=== PATIENT | male | born 1965 | race Hispanic/Latino ===

== ENCOUNTER 2018-02-17 10:22 | Observation (INO) | payer MEDICAID, OTHER ==
[2018-02-17] MEDS ORDERED: Propofol 10 mg/ml Inj (20 ML) ONE (11:16)
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
[2018-02-17 12:14] LABS: BASO % 0.7 % (0.0-2.0); EOS # 0.3 K/uL (0.0-0.7); EOS % 5.5 % (0.0-4.0); HEMOGLOBIN 16.9 g/dL (12.0-18.0); LYMPH # 1.6 K/uL (1.0-4.3); LYMPH % 28.3 % (20.0-40.0); MEAN CELL VOLUME 93.4 fl (80.0-94.0); MEAN CORPUSCULAR HEMOGLOBIN 32.2 pg (27.0-31.0); MEAN CORPUSCULAR HGB CONC 34.4 g/dL (33.0-37.0); MONO # 0.7 K/uL (0.0-0.8); MONO % 12.6 % (0.0-10.0); NEUT % 52.9 % (50.0-75.0); NRBC % 0.1 % (0.0-0.0); RBC 5.24 Mil/uL (4.40-5.90); RED CELL DISTRIBUTION WIDTH 12.9 % (11.5-14.5); WHITE BLOOD COUNT 5.7 K/uL (4.8-10.8)
[2018-02-17] MEDS ORDERED: Lidocaine 2% MPF (5 ml) Inj ONE (12:15)
[2018-02-17] MEDS ORDERED: Bupivacaine HCl 0.5% PF (10 ml) Inj ONE (12:15)
[2018-02-17] MEDS ORDERED: ceFAZolin IV 1 gm in Dextrose 2 GM/100 ML BAG IVPB ONE (12:16)
[2018-02-17 12:21] LABS: ALB/GLOB RATIO 1.2 (1.0-2.1); ALBUMIN 4.6 g/dL (3.5-5.0); ALT/SGPT 64 U/L (21-72); AST/SGOT 36 U/L (17-59); BLOOD UREA NITROGEN 15 mg/dl (9-20); CALCIUM 9.2 mg/dL (8.4-10.2); GFR AFRICAN-AMERICAN > 60; GFR NON-AFRICAN AMERICAN > 60
[2018-02-17 12:27] LABS: PROTHROMBIN TIME 10.7 Seconds (9.8-13.1)
[2018-02-17] MEDS ORDERED: Midazolam 2 MG/2 ML VIAL ONE (12:38)
[2018-02-17] MEDS ORDERED: ePHEDrine 50 mg/ml Inj ONE (12:38)
[2018-02-17 13:32] VITALS: RESP 18
[2018-02-17] MEDS ORDERED: Lactated Ringer's 1,000 ML IV ONE ×2 (14:06→14:50)
[2018-02-17] MEDS ORDERED: Neostigmine 1:1000 (1 mg/ml) Inj ONE (15:13)
[2018-02-17] MEDS ORDERED: Oxycodone/Acetaminophen 5/325 mg Tab PO PRN (15:22)
[2018-02-17] MEDS ORDERED: Lactated Ringer's 1,000 ML IV SCH ×2 (15:30→15:45)
[2018-02-17] MEDS ORDERED: HYDROmorphone 0.5 mg/0.5 ml ISec IVP PRN (15:35)
[2018-02-17 17:15] VITALS: O2SAT 98
[2018-02-17 17:59] VITALS: BP 104/66; PULSE 71; TEMP 97.6
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
== END 2018-02-17 18:50 | disposition home or self-care (01) ==
LOC: H.ER 10:22 → H.ERHOLD 14:43
PROVIDERS: ADMIT Orthopaedic Surgery; ATTEND Orthopaedic Surgery
DX: S62.615A Displaced fracture of proximal phalanx of left ring finger, initial encounter for closed fracture (principal); S62.617A Displaced fracture of proximal phalanx of left little finger, initial encounter for closed fracture; Y92.9 Unspecified place or not applicable; Z91.013 Allergy to seafood; I10 Essential (primary) hypertension; V86.99XA Unspecified occupant of other special all-terrain or other off-road motor vehicle injured in nontraffic accident, initial encounter; Y93.53 Activity, golf
CPT/HCPCS: 26727; 80053; 85025; 85610; 86850; 86900; 99284; C1713; G0378; J0690; J2001; J2250; J2405; J2704; J2710; J3010; J7030; J7120